=== PATIENT | female | born 2005 | race Caucasian/White ===

== ENCOUNTER 2023-06-17 02:02 | Emergency (ER) | payer MEDICAID, OTHER ==
[~2023-06-17] VITALS: Ht 157.5 cm; Wt 85.0 kg
[2023-06-17 02:20] VITALS: O2SAT 100
[2023-06-17 02:43] LABS: BASOPHILS % 0.2 % (0.0-2.0); EOSINOPHILS % 0.5 % (0.0-5.0); HEMATOCRIT. 36.9 % (36.0-48.0); LYMPHOCYTES % 15.3 % (20.0-50.0); MEAN CORPUSCULAR HEMOGLOBIN 30.5 pg (28.0-32.0); MEAN CORPUSCULAR HGB CONC 35.3 g/dL (31.0-37.0); MEAN CORPUSCULAR VOLUME 86.5 fL (81.0-99.0); MEAN PLATELET VOLUME 7.4 fl (7.4-10.4); MONOCYTES % 5.5 % (2.0-8.0); NEUTROPHILS % 78.5 % (40.0-76.0); PLATELET 374 x1000/uL (130-400); RED BLOOD CELL COUNT 4.27 mill/uL (4.2-5.4); RED CELL DISTRIBUTION WIDTH 12.6 % (11.6-14.6); WHITE BLOOD COUNT 17.1 x1000/uL (4.5-11.0)
[2023-06-17 02:49] LABS: CHLORIDE 109 mEq/L (98-107); INDEX HEMOLYSI 1 (1-3); INDEX ICTERIC 1 (1-4); INDEX LIPEMIC 1 (1-3); POTASSIUM 4.1 mEq/L (3.5-5.1); SODIUM 139 mEq/L (136-145)
[2023-06-17 02:55] LABS: ALANINE AMINOTRANSFERASE 30 IU/L (13-61); ALBUMIN 3.9 g/dL (3.4-5.0); ASPARTATE AMINOTRANSFERASE 14 IU/L (15-37); BILIRUBIN TOTAL 0.6 mg/dL (0.1-1.0); CALCIUM 8.9 mg/dL (8.5-10.1); CARBON DIOXIDE 28 mEq/L (21-32); CREATININE 0.7 mg/dL (0.6-1.3); GLUCOSE 124 mg/dL (70-105); UREA NITROGEN BLOOD 9 mg/dL (7-21)
[2023-06-17 03:06] LABS: CLARITY URINE CLOUDY (CLEAR); COLOR URINE YELLOW (YELLOW); GLUCOSE URINE NEGATIVE (NEGATIVE); KETONES URINE NEGATIVE (NEGATIVE); LEUKOCYTE ESTERASE URINE NEGATIVE (NEGATIVE); NITRITE URINE NEGATIVE (NEGATIVE); OCCULT BLOOD URINE 2+ (NEGATIVE); PROTEIN URINE NEGATIVE (NEGATIVE); SPECIFIC GRAVITY URINE 1.023 (1.005-1.030)
[2023-06-17 04:44] LABS: SQUAMOUS EPITHELIAL CELL URINE FEW /lpf (RARE/1+)
[2023-06-17 04:45] LABS: BACTERIA URINE NONE SEEN; WBC URINE 0-2 /hpf (0-2)
[2023-06-17] MEDS ORDERED: ONDANSETRON HCL 4MG/2ML INJ IV STA (05:22)
[2023-06-17] MEDS ORDERED: MORPHINE SULFATE 4 MG/ML CPJ (NOT FOR IM USE) IV STA (05:22)
[2023-06-17] MEDS ORDERED: SODIUM CHLORIDE 0.9% 1,000 ML IV ONE (05:30)
[2023-06-17] MEDS ORDERED: FAMOTIDINE 20MG/2ML VIAL IV ONE (05:30)
[2023-06-17] MEDS ORDERED: MAGNESIUM/ALUMINUM HYDROXIDE/SIMETHICONE 30ML UDC PO ONE (05:30)
[2023-06-17] MEDS ORDERED: METRONIDAZOLE 500 MG PREMIX 100 ML IV ONE (07:45)
[2023-06-17] MEDS ORDERED: CEFTRIAXONE 1GM PREMIX 50 ML IV ONE (07:45)
[2023-06-17 15:04] VITALS: BP 120/67; PULSE 88; RESP 18; TEMP 98.6
== END 2023-06-17 15:36 | disposition short-term general hospital (02) ==
LOC: ER 02:22 → CMPBEDREQ 21:52
DX: K81.9 Cholecystitis, unspecified (principal); R10.11 Right upper quadrant pain
CPT/HCPCS: 80053; 81003; 81025; 83690; 85025; 36415; 76705; 96361; 96365; 96375; 99285; J0696; J3490 ×2; J2405; J2270; J7030; Z7610 ×3